=== PATIENT | female | born 1960 | race Caucasian/White ===

== ENCOUNTER → 2019-11-29 | Outpatient (CLI) | payer OTHER ==
--- NOTE | 2019-11-29 17:58 | RAD ---
DATE: 11/29/2019 10:00 AM EXAM: DIGITAL SCREEN BILAT W/CAD HISTORY: Screening COMPARISON: 03/25/2016 Bilateral full field craniocaudal and mediolateral oblique images were obtained using digital technique. This study was interpreted with the benefit of Computerized Aided Detection (CAD). FINDINGS: Breast Density: FATTY The Breast Parenchyma is primarily fatty replaced. Breast parenchyma level density A. No suspicious masses, microcalcifications or architectural distortion is present to suggest malignancy in either breast. The visualized axillae are unremarkable. IMPRESSION: No mammographic evidence of malignancy. BI-RADS CATEGORY: 1 NEGATIVE RECOMMENDED FOLLOW-UP: 12M 12 MONTH FOLLOW-UP Annual screening mammography is recommended, unless clinically indicated sooner based on symptoms or change in physical exam. PQRS compliance statement: Patient information was entered into a reminder system with a target due date for the next mammogram. Mammography is a sensitive method for finding small breast cancers, but it does not detect them all and is not a substitute for careful clinical examination. A negative mammogram does not negate a clinically suspicious finding and should not result in delay in biopsying a clinically suspicious abnormality. "Our facility is accredited by the [employer] Mammography [employer]."
== END ==
LOC: MAMMO 09:51
PROVIDERS: ATTEND Nurse Practitioner Family
DX: Z12.31 Encounter for screening mammogram for malignant neoplasm of breast (principal)
CPT/HCPCS: 77067

== ENCOUNTER 2020-01-06 10:59 | Emergency (ER) | payer SELFPAY ==
[~2020-01-06] VITALS: Ht 157.5 cm; Wt 90.9 kg
[2020-01-06 11:12] VITALS: BP 107/71
[2020-01-06] MEDS ORDERED: SMZ/TMP 800/160MG TABLET. PO ONE (11:15)
[2020-01-06] MEDS ORDERED: CEPHALEXIN 250 MG CAPSULE PO ONE (11:15)
[2020-01-06] MEDS ORDERED: CEPH-264 PO (11:17)
[2020-01-06] MEDS ORDERED: SULF1TAB24 PO (11:17)
--- NOTE | 2020-01-06 11:17 | PHYS DOC ---
General Adult EDM: Chief Complaint: SKIN PROBLEM HPI: HPI: History obtained from the patient. Patient is a 59-year-old female who denies a history of IV drug use of MRSA who presents with chief complaint of red and tender area inferior to her right breast. She states she is noticed this over the past 2 days. She denies any drainage from the wound. Denies any objective fevers. Denies any history of cellulitis. Denies any recent antibiotics. Denies any vomiting. States she has tried lotions at home with no relief. States it is somewhat tender to palpation. States she has been eating and drinking well otherwise. Denies chest pain or shortness of breath. No other complaints. Review of Systems: Review of Systems: Constitutional: Denies fever or chills Eyes: Denies change in visual acuity HENT: Denies nasal congestion or sore throat Respiratory: Denies cough or shortness of breath Cardiovascular: Denies chest pain or edema GI: Denies abdominal pain, nausea, vomiting, bloody stools or diarrhea : Denies dysuria Musculoskeletal: Denies back pain or joint pain Integument: positive for rash Neurologic: Denies headache, focal weakness or sensory changes Endocrine: Denies polyuria or polydipsia Lymphatic: Denies swollen glands Psychiatric: Denies depression or anxiety Heart Score: Risk Factors: Risk Factors: DM, Current or recent (<one month) smoker, HTN, HLP, family history of CAD, obesity. Risk Scores: Score 0 - 3: 2.5% MACE over next 6 weeks - Discharge Home Score 4 - 6: 20.3% MACE over next 6 weeks - Admit for Clinical Observation Score 7 - 10: 72.7% MACE over next 6 weeks - Early Invasive Strategies Physical Exam: PE: Constitutional: Well developed, well nourished, no acute distress, non-toxic appearance. [] HENT: Normocephalic, atraumatic, bilateral external ears normal, oropharynx moist, no oral exudates, nose normal. [] Eyes: PERRLA, EOMI, conjunctiva normal, no discharge. [] Neck: Normal range of motion, no tenderness, supple, no stridor. [] Cardiovascular:Heart rate regular rhythm, no murmur [] Lungs & Thorax: Bilateral breath sounds clear to auscultation [] Abdomen: soft, no tenderness, no masses, no pulsatile masses. [] Skin: 3 x 3 cm area of induration noted in the right inframammary fold. Surroun ding induration appreciated. Erythematous. Warm to touch. No palpable fluctuance noted. No surrounding crepitus appreciated. Back: No tenderness, no CVA tenderness. [] Extremities: No tenderness, no cyanosis, no clubbing, ROM intact, no edema. [] Neurologic: Alert and oriented X 3, normal motor function, normal sensory function, no focal deficits noted. [] Psychologic: Affect normal, judgement normal, mood normal. [] EKG: EKG: [] Radiology/Procedures: Radiology/Procedures: [] Course & Med Decision Making: Course & Med Decision Making Pertinent Labs and Imaging studies reviewed. (See chart for details) [] Patient is a well-appearing 59-year-old female who presents with a chief complaint of rash to the right inframammary fold. No clinical signs of underlying abscess. No palpable fluctuance noted. Surrounding erythema and induration appreciated however. Although the patient does deny any IV drug use or MRSA history wound does appear quite erythematous and indurated. I do feel is reasonable to start her on Keflex as well as Bactrim. S she did receive her first dose in the emergency department and tolerated this well. I did give her strict return precautions to have this wound reevaluated in 24 to 48 hours. She states that she will try to follow-up with her primary care physician. Encouraged to return the emergency department if needed. Return precautions discussed and understood. Stable for discharge home. Byron Disclaimer: Byron Disclaimer: This electronic medical record was generated, in whole or in part, using a voice recognition dictation system. Departure Departure: Impression: Primary Impression: Cellulitis Qualified Codes: L03.313 - Cellulitis of chest wall Disposition: HOME/RESIDENCE PRIOR TO ADM Condition: STABLE Referrals: NGOZI ZAVALA (PCP) Patient Instructions: Cellulitis Additional Instructions: Please have wound reevaluated by healthcare provider in 24 to 48 hours. Scripts Sulfamethoxazole/Trimethoprim (BACTRIM DS TABLET) 1 Each Tablet 1 TAB PO BID for cellulitis for 10 Days, #20 TAB 0 Refills Prov: VINNIE ORELLANA DO 01/06/20 Cephalexin (KEFLEX) 500 Mg Capsule 500 MG PO QID for cellulitis for 10 Days, #40 TAB Prov: VINNIE ORELLANA DO 01/06/20 VINNIE ORELLANA DO Jan 06, 2020 11:17
== END 2020-01-06 11:43 | disposition home or self-care (01) ==
LOC: ER 10:59
DX: L03.313 Cellulitis of chest wall (principal)
CPT/HCPCS: 99283